=== PATIENT | female | born 1950 | race Caucasian/White ===

== ENCOUNTER 2018-07-26 12:43 | Inpatient (IN) | payer MEDICARE ==
[~2018-07-26] VITALS: Ht 157.5 cm; Wt 51.2 kg
[2018-07-26] MEDS ORDERED: LEVO88TA43 PO (13:10)
[2018-07-26] MEDS ORDERED: SODIUM CHLORIDE 0.9% 1,000 ML IV ONE ×2 (13:15→15:56)
[2018-07-26] MEDS ORDERED: HYDROmorphone 2 MG/ML, 1ML ONE ×2 (13:20→19:11)
[2018-07-26] MEDS ORDERED: HYDROmorphone 2 MG/ML, 1ML IVPush PRN (13:30)
[2018-07-26] MEDS ORDERED: SODIUM CHLORIDE FLUSH 10ML SYR IVF ONE (13:30)
[2018-07-26 13:35] LABS: BASOPHILS # (AUTO) 0.02 x10^3/uL (0-0.1); BASOPHILS % (AUTO) 0 % (0-1); EOSINOPHILS % (AUTO) 0 % (1-7); LYMPHOCYTES # (AUTO) 1.01 x10^3/uL (1-3.4); LYMPHOCYTES % (AUTO) 13 % (22-44); MD NO; MEAN CORPUSCULAR HEMOGLOBIN 31.4 pg (27.0-34.8); MEAN CORPUSCULAR VOLUME 92.3 fL (80-100); MEAN PLATELET VOLUME 8.1 fL (7.4-10.4); MONOCYTES # (AUTO) 0.45 x10^3/uL (0.2-0.8); MONOCYTES % (AUTO) 6 % (2-9); NEUTROPHILS # (AUTO) 6.44 x10^3/uL (1.8-6.8); NEUTROPHILS % (AUTO) 81 % (42-75); PLATELET COUNT 248 x10^3/uL (130-400); RED BLOOD COUNT 4.44 x10^6/uL (3.82-5.3); RED CELL DISTRIBUTION WIDTH 12.6 % (9.6-15.2)
[2018-07-26 13:47] LABS: ALBUMIN 3.7 g/dL (3.4-5.0); ANION GAP 9 mmol/L (5-15); CALCIUM 8.3 mg/dL (8.5-10.1); CHLORIDE 103 mmol/L (98-107)
[2018-07-26 13:49] LABS: MICROSCOPIC AUTO
[2018-07-26 13:50] LABS: ALANINE AMINOTRANSFERASE 35 U/L (12-78); ALKALINE PHOSPHATASE 90 U/L (45-117); BILIRUBIN,TOTAL 0.6 mg/dL (0.2-1.0); CREATININE 0.62 mg/dL (0.55-1.02); TOTAL PROTEIN 7.4 g/dL (6.4-8.2)
[2018-07-26 13:51] LABS: CULTURE INDICATED? NO
[2018-07-26] MEDS ORDERED: OMNIPAQUE 350 MG/ML, 100ML BOTTLE ONE (15:19)
[2018-07-26] MEDS ORDERED: SODIUM CHLORIDE FLUSH 10ML SYR IVF PRN (16:00)
[2018-07-26] MEDS ORDERED: MIDAZOLAM 1 MG/ML, 2ML ONE (16:44)
[2018-07-26] MEDS ORDERED: FENTANYL PF 250 MCG/5ML ONE (16:44)
[2018-07-26] MEDS ORDERED: NEOSTIGMINE 1 MG/ML, 10ML ONE (17:29)
[2018-07-26] MEDS ORDERED: GLYCOPYRROLATE 0.2MG/1ML, 5ML ONE (17:29)
[2018-07-26] MEDS ORDERED: ROCURONIUM 10MG/ML,5ML ONE (17:29)
[2018-07-26] MEDS ORDERED: PROPOFOL 10 MG/ML, 20ML ONE (17:29)
[2018-07-26] MEDS ORDERED: DEXAMETHASONE 4 MG/ML, 1ML ONE (17:29)
[2018-07-26] MEDS ORDERED: CEFOTETAN 1 GM ONE (17:29)
[2018-07-26] MEDS ORDERED: SUCCINYLCHOLINE 20 MG/ML, 10ML ONE (17:29)
[2018-07-26] MEDS ORDERED: OXYcodone 5 MG/5 ML ORAL.SOL UDC PO PRN (19:00)
[2018-07-26] MEDS ORDERED: ALBUTEROL SULFATE 2.5 MG/3 ML NPPB PRN (19:00)
[2018-07-26] MEDS ORDERED: MEPERIDINE/PF 25MG/0.5ML IVPush PRN (19:00)
[2018-07-26] MEDS ORDERED: ONDANSETRON 2MG/ML, 2ML IVPush PRN (19:00)
[2018-07-26] MEDS ORDERED: LABETALOL 5MG/ML, 20ML IV PRN (19:00)
[2018-07-26] MEDS ORDERED: hydrALAzine 20 MG/ML, 1ML IV PRN (19:00)
[2018-07-26] MEDS ORDERED: FENTANYL PF 100 MCG/2ML IV PRN (19:00)
[2018-07-26] MEDS ORDERED: KETOROLAC 30 MG/1 ML IV PRN (19:00)
[2018-07-26] MEDS ORDERED: METOCLOPRAMIDE 5 MG/ML, 2ML IV PRN (19:00)
[2018-07-26] MEDS ORDERED: PROMETHAZINE 25 MG/ML, 1ML IV PRN (19:00)
[2018-07-26] MEDS ORDERED: ONDANSETRON 2MG/ML, 2ML ONE (19:11)
[2018-07-26] MEDS ORDERED: KETOROLAC 30 MG/1 ML ONE (19:11)
[2018-07-26] MEDS: HYDROmorphone 1 MG/ML, 1ML IV PRN ×2 (19:15→19:21)
[2018-07-26] MEDS ORDERED: DEXAMETHASONE 4 MG/ML, 1ML IVPush PRN (21:00)
[2018-07-26] MEDS ORDERED: DIPHENHYDRAMINE 25 MG CAPSULE PO PRN (21:00)
[2018-07-26] MEDS ORDERED: LORazepam 2 MG/ML, 1ML IVPush PRN (21:00)
[2018-07-26] MEDS ORDERED: DIPHENHYDRAMINE 50 MG/ML, 1ML IVPush PRN (21:00)
[2018-07-26] MEDS ORDERED: MORPHINE SULFATE 4 MG/ML, 1ML IVPush PRN (21:00)
[2018-07-26] MEDS ORDERED: HALOPERIDOL 5 MG/ML IVPush PRN (21:00)
[2018-07-26] MEDS ORDERED: LORazepam 1MG TABLET PO PRN (21:00)
[2018-07-26] MEDS ORDERED: CALCIUM CARBONATE 500 MG TAB.CHEW PO PRN (21:00)
[2018-07-26] MEDS ORDERED: TRAZODONE 50MG TABLET PO PRN (21:00)
[2018-07-26] MEDS ORDERED: SCOPOLAMINE PATCH, 1.5MG PATCH.TD72 TD PRN (21:00)
[2018-07-27] MEDS: ACETAMINOPHEN 500 MG TABLET PO SCH ×4 (00:49→20:40)
[2018-07-27] MEDS: KETOROLAC 30 MG/1 ML IVPush SCH ×4 (00:49→20:40)
[2018-07-27 02:56] VITALS: BP 95/57
[2018-07-27 05:16] LABS: BASOPHILS # (AUTO) 0.02 x10^3/uL (0-0.1); BASOPHILS % (AUTO) 0 % (0-1); EOSINOPHILS % (AUTO) 0 % (1-7); LYMPHOCYTES # (AUTO) 0.89 x10^3/uL (1-3.4); LYMPHOCYTES % (AUTO) 12 % (22-44); MD NO; MEAN CORPUSCULAR HEMOGLOBIN 31.6 pg (27.0-34.8); MEAN CORPUSCULAR HGB CONC 33.8 g/dL (32.4-35.8); MEAN CORPUSCULAR VOLUME 93.6 fL (80-100); MEAN PLATELET VOLUME 8.1 fL (7.4-10.4); MONOCYTES # (AUTO) 0.49 x10^3/uL (0.2-0.8); MONOCYTES % (AUTO) 6 % (2-9); NEUTROPHILS # (AUTO) 6.34 x10^3/uL (1.8-6.8); NEUTROPHILS % (AUTO) 82 % (42-75); PLATELET COUNT 228 x10^3/uL (130-400); RED BLOOD COUNT 4.35 x10^6/uL (3.82-5.3)
[2018-07-27 05:30] LABS: ANION GAP 7 mmol/L (5-15); CALCIUM 7.7 mg/dL (8.5-10.1); CHLORIDE 106 mmol/L (98-107); CREATININE 0.65 mg/dL (0.55-1.02)
[2018-07-27] MEDS: ENOXAPARIN 40 MG/0.4 ML SQ SCH (05:54)
[2018-07-27] MEDS: D5%-0.45NACL+KCL 20MEQ 1,000 ML IV SCH ×2 (05:57→15:54)
[2018-07-27 07:28] VITALS: BP 121/76
[2018-07-27] MEDS: ONDANSETRON 2MG/ML, 2ML IV PRN (08:46)
[2018-07-27] MEDS: OXYcodone IR 5MG TABLET PO PRN ×2 (08:47→11:35)
[2018-07-27 13:06] VITALS: BP 97/64
[2018-07-27] MEDS ORDERED: MAGNESIUM SULFATE PMX 2GM/50ML 50 ML IV ONE (15:30)
[2018-07-27 19:57] VITALS: BP 117/72
[2018-07-28 01:31] VITALS: BP 112/63
[2018-07-28] MEDS: KETOROLAC 30 MG/1 ML IVPush SCH ×4 (02:21→19:41)
[2018-07-28] MEDS: ACETAMINOPHEN 500 MG TABLET PO SCH ×4 (02:22→19:42)
[2018-07-28 05:28] LABS: BASOPHILS # (AUTO) 0.02 x10^3/uL (0-0.1); BASOPHILS % (AUTO) 0 % (0-1); EOSINOPHILS # (AUTO) 0.02 x10^3/uL (0-0.4); EOSINOPHILS % (AUTO) 0 % (1-7); LYMPHOCYTES # (AUTO) 1.07 x10^3/uL (1-3.4); LYMPHOCYTES % (AUTO) 15 % (22-44); MD NO; MEAN CORPUSCULAR HEMOGLOBIN 31.9 pg (27.0-34.8); MEAN CORPUSCULAR HGB CONC 34.1 g/dL (32.4-35.8); MEAN CORPUSCULAR VOLUME 93.3 fL (80-100); MEAN PLATELET VOLUME 8.2 fL (7.4-10.4); MONOCYTES # (AUTO) 0.41 x10^3/uL (0.2-0.8); MONOCYTES % (AUTO) 6 % (2-9); NEUTROPHILS # (AUTO) 5.43 x10^3/uL (1.8-6.8); NEUTROPHILS % (AUTO) 78 % (42-75); PLATELET COUNT 180 x10^3/uL (130-400); RED CELL DISTRIBUTION WIDTH 13.1 % (9.6-15.2)
[2018-07-28 05:32] LABS: ANION GAP 7 mmol/L (5-15); CALCIUM 7.8 mg/dL (8.5-10.1); CHLORIDE 105 mmol/L (98-107)
[2018-07-28 07:04] VITALS: BP 127/80
[2018-07-28] MEDS: ENOXAPARIN 40 MG/0.4 ML SQ SCH (08:13)
[2018-07-28] MEDS: ONDANSETRON 2MG/ML, 2ML IV PRN (08:18)
[2018-07-28] MEDS: D5%-0.45NACL+KCL 20MEQ 1,000 ML IV SCH (12:12)
[2018-07-28 13:21] VITALS: BP 120/75
[2018-07-28] MEDS: LEVOTHYROXINE 88 MCG TABLET PO SCH (14:14)
[2018-07-28] MEDS ORDERED: ONDANSETRON ODT 4 MG ONE (16:35)
[2018-07-28] MEDS ORDERED: ONDANSETRON ODT 4 MG PO PRN (17:00)
[2018-07-28 20:47] VITALS: BP 114/75
[2018-07-29] MEDS: KETOROLAC 30 MG/1 ML IVPush SCH ×3 (01:52→14:00)
[2018-07-29] MEDS: ACETAMINOPHEN 500 MG TABLET PO SCH ×3 (01:52→14:00)
[2018-07-29 03:55] VITALS: BP 132/82
[2018-07-29 06:07] LABS: BASOPHILS # (AUTO) 0.03 x10^3/uL (0-0.1); BASOPHILS % (AUTO) 1 % (0-1); EOSINOPHILS # (AUTO) 0.11 x10^3/uL (0-0.4); EOSINOPHILS % (AUTO) 2 % (1-7); LYMPHOCYTES # (AUTO) 0.81 x10^3/uL (1-3.4); LYMPHOCYTES % (AUTO) 12 % (22-44); MD NO; MEAN CORPUSCULAR HEMOGLOBIN 32.1 pg (27.0-34.8); MEAN CORPUSCULAR HGB CONC 34.4 g/dL (32.4-35.8); MEAN CORPUSCULAR VOLUME 93.2 fL (80-100); MONOCYTES % (AUTO) 6 % (2-9); NEUTROPHILS % (AUTO) 80 % (42-75); PLATELET COUNT 204 x10^3/uL (130-400); RED BLOOD COUNT 3.67 x10^6/uL (3.82-5.3); RED CELL DISTRIBUTION WIDTH 12.7 % (9.6-15.2)
[2018-07-29 06:14] LABS: ANION GAP 10 mmol/L (5-15); CALCIUM 7.7 mg/dL (8.5-10.1); CHLORIDE 105 mmol/L (98-107); CREATININE 0.47 mg/dL (0.55-1.02)
[2018-07-29 07:47] VITALS: BP 123/77
[2018-07-29] MEDS: D5%-0.45NACL+KCL 20MEQ 1,000 ML IV SCH (08:12)
[2018-07-29] MEDS: ENOXAPARIN 40 MG/0.4 ML SQ SCH (08:15)
[2018-07-29] MEDS: LEVOTHYROXINE 88 MCG TABLET PO SCH (12:00)
[2018-07-29] MEDS ORDERED: IBUP-1222 PO (14:13)
== END 2018-07-29 15:00 | disposition home or self-care (01) | DRG 330 ==
LOC: ED 14:36 → EDIP 15:56 → 4NOR 20:00 → DCLOUNGE 07-29 14:50
PROVIDERS: ADMIT Colon & Rectal Surgery; ATTEND Colon & Rectal Surgery
PROC: 0DTF0ZZ Resection of Right Large Intestine, Open Approach (ICD-10-PCS; principal; 2018-07-26 17:00)
DX: K56.2 Volvulus (principal); Q43.8 Other specified congenital malformations of intestine; E89.0 Postprocedural hypothyroidism; M06.9 Rheumatoid arthritis, unspecified
CPT/HCPCS: 36415; 74177; 80048; 80053; 81001; 83605; 83690; 83735; 85025; 88307; 93005; 99285; G0378; J1100; J1170; J1650; J1885; J2250; J2405; J2704; J2710; J3010; J3490; Q0162; Q9967; C1765; J0330; J3475; J3480; J7030; S0074